=== PATIENT | female | born 1960 | race Caucasian/White ===

== ENCOUNTER → 2020-06-22 14:35 | Outpatient (CLI) | payer MEDICARE, SELFPAY ==
--- NOTE | 2020-06-22 14:43 | CT_ITS ---
PROCEDURE: CT ABDOMEN PELVIS WO CON CLINICAL INDICATION: mass/hernia? Pain/distention left upper abd all across hx months. Hx of ibs. Area of distention upper abd. COMPARISON: No exams were available for comparison TECHNIQUE: Axial images obtained with sagittal and coronal reformats. All CT scans at the facility use one or more dose reduction, viz: automated exposure control, ma/kV adjustment per patient size (including targeted exams where dose is matched to indication, i.e. head), or iterative reconstruction technique. FINDINGS: LOWER THORAX: On the most superior image there is a nodular opacity overlying the lower aspect of the right breast. This could be due to fibroglandular tissue or nodule. ABDOMEN & PELVIS: Prior cholecystectomy. The liver, spleen, adrenal glands, and kidneys have an unremarkable appearance. There is nodularity along the anterior aspect of the body of the pancreas. This is isodense and may only be related to pancreatic lobulation. Cannot exclude an isodense nodule. Either CT or MRI with pancreatic protocol without and with enhancement suggested for further evaluation. No intestinal obstruction or free air. No evidence of appendicitis. No evidence of diverticulitis. Prior hysterectomy. Along the base of the urinary bladder on image number 87 series 3 there is some increased soft tissue density. This may merely represent partial volume averaging artifact from the underlying pelvic floor however, a lesion within the central aspect of the bladder is a consideration. Cystoscopy may provide further evaluation. No abdominal wall hernia is identified. There is degenerative changes in the lumbar spine IMPRESSION: 1. No acute finding. 2. Possible nodule within the mid aspect of the pancreas. Follow-up with pancreatic protocol either MRI or CT may further delineate. 3. Increased soft tissue density along the base of the urinary bladder which could be due to partial volume averaging artifact or bladder lesion. 4. No evidence of abdominal wall hernia 5. Indeterminate opacity along the inferior aspect of the right breast. Mammography may provide further evaluation. Dictated by: Berto Du MD 06/24/2020 09:46 Berto Du MD in [facility] 06/24/2020 09:46
== END ==
PROVIDERS: PCP Family Medicine; Visit Provider Family Medicine
DX: R10.32 Left lower quadrant pain (principal)
CPT/HCPCS: 74176

== ENCOUNTER → 2020-07-05 10:36 | Outpatient (CLI) | payer MEDICARE, SELFPAY ==
--- NOTE | 2020-07-05 10:37 | MM_ITS ---
PROCEDURE: MM DIG SCREENING MAMM BI W/CAD Digital Breast Tomosynthesis Included CLINICAL INDICATION: abnormal finding on CT abd- see impression There is no personal or family history of breast cancer. COMPARISON: MG MM MAMMO DIGITAL SCREENING W CAD BILAT from 09/26/2016 TECHNIQUE: Standard CC and MLO images and 3D Tomosynthesis was obtained. R2 CAD reviewed. FINDINGS: Scattered fibroglandular densities are seen in both breast. There are couple of benign-appearing microcalcifications in each breast. There is a stable small benign-appearing nodular density axillary tail right breast likely an intramammary node. There are no CAD markings. There is no suspicious lesion and no suspicious microcalcifications. IMPRESSION: Fibrofatty parenchyma with no suspicious lesions seen BI-RAD Category: 2 Benign Finding(s) FOLLOW-UP: 1YR 1 Year Follow-up (A letter has been sent to the patient regarding results of the study.) Dictated by: Dr. Gamaliel Govea MD 07/11/2020 11:52 Dr. Gamaliel Govea MD in [facility] 07/11/2020 11:52
== END ==
PROVIDERS: PCP Family Medicine; Visit Provider Family Medicine
DX: Z12.31 Encounter for screening mammogram for malignant neoplasm of breast (principal)
CPT/HCPCS: 77063; 77067

== ENCOUNTER → 2020-07-13 07:49 | Outpatient (CLI) | payer MEDICARE, SELFPAY ==
--- NOTE | 2020-07-13 08:08 | MR_ITS ---
PROCEDURE: MR ABDOMEN WO/W CON CLINICAL INDICATION: abnormal CT abd Follow-up possible pancreatic mass COMPARISON: CT CT ABDOMEN PELVIS WO CON from 06/22/2020 TECHNIQUE: Routine multiplanar multi echo sequences are performed without and with gadolinium enhancement. FINDINGS: Liver, spleen kidneys, and adrenal glands have an unremarkable appearance. No obvious pancreatic mass. Nodular contour is present along the anterior aspect of the body of the pancreas measuring approximately 1 cm. This however has similar enhancement characteristics to the remaining pancreas and is felt to be related to lobularity of the pancreatic body. Would suggest a six-month follow-up for confirmation. The remaining pancreas has an unremarkable appearance. There is biliary ectasia. There has been a prior cholecystectomy which may account for this finding. Pancreatic duct has an unremarkable appearance. Common bile duct is prominent proximally at 10 mm and distally measures approximately 6 mm. IMPRESSION: 1. Nodular contour along the anterior aspect of the body of the pancreas felt to be related to pancreatic variant morphology as opposed to a mass/nodule. Suggest 6 month follow-up for confirmation of stability. 2. Prior cholecystectomy with biliary ectasia. No definite common duct stone or other abnormality apparent Dictated by: Berto Du MD 07/17/2020 11:44 Berto Du MD in [facility] 07/17/2020 11:44
[2020-07-13 08:14] LABS: Chloride 107 mmol/L (98-107)
[2020-07-13 08:15] LABS: Potassium 4.3 mmoL/L (3.5-5.1); Sodium 142 mmol/L (136-145)
[2020-07-13 08:18] LABS: Anion Gap 4.3 mEq/L (5-15); Blood Urea Nitrogen 7 mg/dl (7-17); Calcium 9.3 mg/dl (8.4-10.2); Carbon Dioxide 35 mmol/L (22.0-30.0); Estimated Glomerular Filt Rate 73 ml/min (>60); GFR (African American) 89 ML/MIN (>60); Glucose 93 mg/dl (74-100)
== END ==
PROVIDERS: PCP Family Medicine; Visit Provider Family Medicine
DX: Z01.818 Encounter for other preprocedural examination (principal); R10.9 Unspecified abdominal pain; R93.5 Abnormal findings on diagnostic imaging of other abdominal regions, including retroperitoneum
CPT/HCPCS: 36415; 74183; 76376; 80048; A9576

== ENCOUNTER 2020-08-18 20:47 | Emergency (ER) | payer MEDICARE, SELFPAY ==
[2020-08-18 21:33] VITALS: BP 181/64; PULSE 81; RESP 16; TEMP 37; O2SAT 96; BMI 22.6
--- NOTE | 2020-08-18 22:01 | XR_ITS ---
PROCEDURE: XR ANKLE LT MIN 3V CLINICAL INDICATION: twisted ankle Pain COMPARISON: No exams were available for comparison FINDINGS: No fracture or dislocation. No lytic or blastic change. There is normal mineralization. The joint spaces are well-preserved. No significant degenerative/arthritic changes. No erosive changes evident. Other findings:None. IMPRESSION: No acute findings. Dictated by: Berto Du MD 08/19/2020 08:48 Berto Du MD in [facility] 08/19/2020 08:48
--- NOTE | 2020-08-18 22:06 | HMH.EDLOEX ---
ED Disposition Clinical Impression: Left ankle injury Qualifiers: Encounter type: initial encounter Qualified Code(s): S99.912A - Unspecified injury of left ankle, initial encounter Achilles tendon injury Qualifiers: Encounter type: initial encounter Laterality: left Qualified Code(s): S86.002A - Unspecified injury of left Achilles tendon, initial encounter Disposition: Home, Self-Care Condition on Discharge: Good Instructions: DI for Ankle Sprain Additional Instructions: ice and no wt bearing and see pcp for follow up Referrals: Raimundo Johnson MD [Primary Care Provider] - Cara Jackson DPM [Staff Physician] - - Critical Care Critical Care Time: No Attestation: On 08/18/20, the high probability of a clinically significant, sudden or life threatening deterioration of the following system(s) required my full and direct attention, intervention and personal management. The time I documented below is in addition to time spent performing reported procedures but includes the following listed in this critical care notation. Medical Decision Making - Medical Records Medical records reviewed: Yes: I reviewed the patient's medical records. - Petros Inquiry Pt receiving controlled substance: No Vital Signs: 08/18/20 21:33 Temperature 98.6 F Temperature Source Oral Pulse Rate [Right Brachial] 81 Respiratory Rate 16 Blood Pressure [Right Arm] 181/64 H Blood Pressure Mean [Right Arm] 103 Blood Pressure Source [Right Arm] Automatic Cuff 02 Sat by Pulse Oximetry 96 Oxygen Delivery Method Room Air - Lab Data Lab results reviewed: Yes: I reviewed the patient's lab results. Orders (Tests/Meds): ORDERS Category Date Time Status Tibia/fibula XR left 2 views [XR tibia fibula LT 2V] Exams 08/18/20 22:14 Taken Stat XR ankle LT min 3V Stat Exams 08/18/20 22:01 Taken - Radiology Data #1 Image(s): Tib/Fib, Ankle Image Reviewed: Yes I reviewed the patient's radiology image Preliminary Findings: No Fracture Seen Medical Decision Narrative: possible achilles tendon injury and will ask pt to see dr jackson for follow up Lower Extremity Injury HPI - General Chief Complaint: Extremity Injury, Lower Stated Complaint: AO 08/18 FELL INJURED L FOOT AND LEG Time Seen by Provider: 08/18/20 21:45 Mode of Arrival: Wheelchair Source of Information: Patient, Medical Record Limitations: No Limitations Description of Symptoms (Recalled from ER Triage Doc. by RN): Pt reports to twisting her left ankle ~11am today. Pt is c/o pain to posterior ankle and used ice 1x aobut 2 hr ago. She reports minimal weight bearing d/t pain and is able to wiggle her toes. But pt reports she can not flex her ankle. Peripheral pulses 3+, no redness, heat or bruising noted. Pt had is wrapped in a compression bandage on arrival. - History of Present Illness HPI Narrative: acute injury to lt lower leg and ankle as she was playing and ext rotational injury - no hip pain -no knee pain MD complaint: leg injury, ankle injury Onset (ago): hour(s) Injury: Left: ankle Type of Injury: eversion Place: home Severity: moderate Context: fall Associated symptoms: able to partially bear weight Other symptoms: none - Related Data Previous Rx's Medication Instructions Recorded duloxetine 60 mg capsule,delayed 60 mg PO DAILY #90 cap 01/10/20 release alendronate 70 mg tablet 70 mg PO QWEEK #12 tab 01/20/20 ergocalciferol (vitamin D2) 1,250 1,250 mcg PO QWEEK #12 cap 01/20/20 mcg (50,000 unit) capsule omeprazole 40 mg capsule,delayed 40 mg PO DAILY #30 cap 04/20/20 release dicyclomine 20 mg tablet 20 mg PO DAILY #30 tab 07/05/20 hydrocodone 7.5 mg-acetaminophen 1 tab PO DAILY PRN #30 tab 08/06/20 325 mg tablet Allergies Allergy/AdvReac Type Severity Reaction Status Date / Time codeine Allergy Severe Rash Verified 07/05/20 13:03 Depo Medrol Allergy Severe Hives Uncoded 07/05/20 13:03 [facility] History - Hepatitis A Screen
--- NOTE | 2020-08-18 22:14 | XR_ITS ---
PROCEDURE: XR TIBIA FIBULA LT 2V CLINICAL INDICATION: injury with pain COMPARISON: No exams were available for comparison FINDINGS: No fracture or dislocation. No lytic or blastic change. There is normal mineralization. The joint spaces are well-preserved. No significant degenerative/arthritic changes. No erosive changes evident. Other findings:None. IMPRESSION: No acute findings. Dictated by: Berto Du MD 08/19/2020 08:46 Berto Du MD in [place] 08/19/2020 08:46
[2020-08-18 22:30] VITALS: BP 161/71; PULSE 79; O2SAT 100
[2020-08-18 23:14] VITALS: BP 162/79; PULSE 84; RESP 20; TEMP 37; O2SAT 100
== END 2020-08-18 23:15 | disposition home or self-care (01) ==
PROVIDERS: Emergency Provider Emergency Medicine; PCP Family Medicine
DX: S86.002A Unspecified injury of left Achilles tendon, initial encounter (principal); X50.1XXA Overexertion from prolonged static or awkward postures, initial encounter; Y92.9 Unspecified place or not applicable; F17.210 Nicotine dependence, cigarettes, uncomplicated
CPT/HCPCS: 29515; 73590; 73610; 99282

== ENCOUNTER → 2020-11-29 14:16 | Outpatient (CLI) | payer MEDICARE, SELFPAY ==
[2020-11-29 14:42] LABS: Amphetamine/Metha Screen,Urine Negative ng/ml (<1000)
[2020-11-29 14:43] LABS: Barbiturates Screen,Urine Negative ng/ml (<200); Benzodiazepines Screen,Urine Negative ng/ml (<200)
[2020-11-29 14:44] LABS: Cannabinoid Screen,Urine Positive ng/ml (<50)
[2020-11-29 14:45] LABS: Cocaine Screen,Urine Negative ng/ml (<300); Methadone Screen,Urine Negative ng/ml (<300)
[2020-11-29 14:46] LABS: Opiate Screen,Urine Negative ng/ml (<300)
[2020-11-29 14:47] LABS: Phencyclidine Screen,Urine Negative ng/ml (<25)
== END ==
PROVIDERS: Visit Provider Family Medicine
DX: G89.29 Other chronic pain (principal); M54.2 Cervicalgia
CPT/HCPCS: 80305

== ENCOUNTER 2020-12-17 08:18 | Emergency (ER) | payer MEDICARE, SELFPAY ==
[2020-12-17] VITALS (9 sets, daily range): BP systolic 128–147; BP diastolic 63–80; PULSE 56–86; RESP 16–18; TEMP 36.7–36.9; O2SAT 96–98; BMI 20.4
--- NOTE | 2020-12-17 08:25 | ECG_ITS ---
APPROVED REPORT Exam: Resting ECG HR:70 bpm ECG Measurements Heart Rate 70 AXES QRSd 70 QRS 85 QT 384 T 70 QTc 414 Conclusion Accelerated Junctional rhythm Late R wave progression Abnormal ECG Electronically signed by : Oleg Mayer, 12/18/2020 08:28:23
--- NOTE | 2020-12-17 08:46 | HMH.EDGENADL ---
ED Disposition Clinical Impression: Vasovagal syncope Disposition: Home, Self-Care Condition on Discharge: Good Instructions: DI for Syncope in Adults (Fainting), DI for Syncope in Children (Fainting) Additional Instructions: Please follow-up with your PCP for further management Referrals: Raimundo Johnson MD [Primary Care Provider] - - Critical Care Critical Care Time: No Attestation: On 12/17/20, the high probability of a clinically significant, sudden or life threatening deterioration of the following system(s) required my full and direct attention, intervention and personal management. The time I documented below is in addition to time spent performing reported procedures but includes the following listed in this critical care notation. Medical Decision Making - Medical Records Medical records reviewed: Yes: I reviewed the patient's medical records. - Petros Inquiry Pt receiving controlled substance: No Vital Signs: 12/17/20 08:19 12/17/20 09:00 12/17/20 09:30 Temperature 98.4 F Temperature Source Oral Pulse Rate 56 L 70 Pulse Rate [Right Radial] 86 Respiratory Rate 18 17 Blood Pressure 147/67 H 138/66 Blood Pressure [Right Arm] 146/80 H Blood Pressure Mean [Right Arm] 102 Blood Pressure Source [Right Arm] Automatic Cuff Blood Pressure Position [Right Arm] Sitting 02 Sat by Pulse Oximetry 98 97 98 Oxygen Delivery Method Room Air 12/17/20 10:00 12/17/20 10:30 12/17/20 11:00 Temperature Temperature Source Pulse Rate 70 73 84 Pulse Rate [Right Radial] Respiratory Rate 18 16 17 Blood Pressure 140/67 128/63 130/67 Blood Pressure [Right Arm] Blood Pressure Mean [Right Arm] Blood Pressure Source [Right Arm] Blood Pressure Position [Right Arm] 02 Sat by Pulse Oximetry 97 98 96 Oxygen Delivery Method 12/17/20 11:30 12/17/20 12:00 Temperature Temperature Source Pulse Rate 71 71 Pulse Rate [Right Radial] Respiratory Rate 18 17 Blood Pressure 139/71 137/67 Blood Pressure [Right Arm] Blood Pressure Mean [Right Arm] Blood Pressure Source [Right Arm] Blood Pressure Position [Right Arm] 02 Sat by Pulse Oximetry 97 97 Oxygen Delivery Method - Lab Data Lab results reviewed: Yes: I reviewed the patient's lab results. Lab Results 12/17/20 08:35: WBC 13.7 H, RBC 5.10, Hgb 15.5, Hct 46.3, MCV 90.8, MCH 30.5, MCHC 33.6, RDW 13.2, Plt Count 383, MPV 8.3, Neut % (Auto) 75.6, Lymph % (Auto) 19.3, [place] % (Auto) 3.6, Eos % (Auto) 0.9, Baso % (Auto) 0.5, Neut # (Auto) 10.4 H, Lymph # (Auto) 2.7, [place] # (Auto) 0.5, Eos # (Auto) 0.1, Baso # (Auto) 0.1 12/17/20 08:35: Sodium 143, Potassium 3.9, Chloride 105, Carbon Dioxide 31 H, Anion Gap 10.9, BUN 10, Creatinine 0.70, Estimated Creat Clear 66, Estimated GFR 85, Est GFR ( Amer) 103, Glucose 101 H, Calcium 9.5, Total Bilirubin 0.4, AST 30, ALT 18, Alkaline Phosphatase 111, Troponin I < 0.01, Total Protein 8.7 H, Albumin 4.8, Globulin 3.9 H, Albumin/Globulin Ratio 1.2 12/17/20 10:15: Urine Color Yellow, Urine Appearance Clear, Urine pH 5.5, Ur Specific [place] 1.010, Urine Protein Negative, Urine Glucose (UA) Negative, Urine Ketones Negative, Urine Blood Trace-l, Urine Nitrate Negative, Urine Bilirubin Negative, Urine Urobilinogen 0.2, Ur Leukocyte Esterase Negative, Urine RBC None, Urine WBC None, Ur Squamous Epith Cells Occasional, Urine Bacteria None 12/17/20 11:25: Troponin I < 0.01 Result diagrams: 12/17/20 08:35 12/17/20 08:35 Orders (Tests/Meds): ORDERS Category Date Time Status Troponin I Q3H Lab 12/17/20 14:45 Ordered - ECG Data Tracing #1 I reviewed this ECG and interpreted as documented below: ECG initial impression date: 12/17/20 ECG initial impression time: 08:30 Normal Sinus Rhythm: No Arrhythmias present: accelerated junctional rhythm - MAXIMUS Score for Non-Stemi Age of Patient: 60-69 years old Heart Rate: 70-89 bpm Systolic Blood Pressure: 200 mmhg or higher S
--- NOTE | 2020-12-17 08:47 | XR_ITS ---
PROCEDURE: XR CHEST 2V CLINICAL HISTORY: syncope COMPARISON: No exams were available for comparison FINDINGS: The cardiomediastinal silhouette and pulmonary vascularity are within normal limits. There is hyperinflation with eventration of the hemidiaphragms consistent with small airway disease. There are multiple old right-sided rib fractures. Vague opacity is noted in the right lower lung zone overlying the 7th rib and could represent a nipple shadow. There are degenerative changes in the thoracic spine. There are bone plates overlying the cervical spine. IMPRESSION: Hyperinflation suggesting small airway disease/COPD/asthma/bronchitis Dictated by: Berto Du MD 12/17/2020 09:42 Berto Du MD in [place] 12/17/2020 09:42
[2020-12-17 08:50] LABS: Chloride 105 mmol/L (98-107); Potassium 3.9 mmoL/L (3.5-5.1); Sodium 143 mmol/L (136-145)
[2020-12-17 08:52] LABS: Blood Urea Nitrogen 10 mg/dl (7-17); Creatinine Clearance Estimated 66 mL/min (50-200); Estimated Glomerular Filt Rate 85 ml/min (>60); GFR (African American) 103 ML/MIN (>60)
[2020-12-17 08:53] LABS: Alanine Aminotransferase 18 U/L (12-78); Albumin Level 4.8 g/dl (3.5-5.0); Albumin/Globulin Ratio 1.2 (1.1-1.8); Alkaline Phosphatase 111 U/L (38-126); Anion Gap 10.9 mEq/L (5-15); Aspartate Amino Transferase 30 U/L (14-36); Bilirubin,Total 0.4 mg/dl (0.2-1.3); Calcium 9.5 mg/dl (8.4-10.2); Carbon Dioxide 31 mmol/L (22.0-30.0); Globulin 3.9 g/dL (1.3-3.2); Glucose 101 mg/dl (74-100); Total Protein,Serum 8.7 g/dl (6.3-8.2)
[2020-12-17 09:00] LABS: Basophils # 0.1 K/mm3 (0-0.2); Basophils % 0.5 % (0.1-2.0); Eosinophils # 0.1 K/mm3 (0.0-0.4); Eosinophils % 0.9 % (0.1-12.0); Hematocrit 46.3 % (37.0-47.0); Hemoglobin 15.5 g/dL (12.2-16.2); Lymphocytes # 2.7 K/mm3 (0.7-4.5); Lymphocytes % 19.3 % (10-50); Mean Corpuscular HGB Conc 33.6 g/dL (31.8-35.4); Mean Corpuscular Hemoglobin 30.5 pg (27.0-31.2); Mean Corpuscular Volume 90.8 fl (81-99); Mean Platelet Volume 8.3 fl (7.4-10.4); Monocytes # 0.5 K/mm3 (0.1-1.0); Monocytes % 3.6 % (1.7-9.3); Neutrophils # 10.4 K/mm3 (1.8-7.8); Neutrophils % 75.6 % (37.0-80.0); Platelet Count 383 K/mm3 (142-424); Red Cell Distribution Width 13.2 % (11.5-17.5); White Blood Count 13.7 K/mm3 (4.8-10.8)
[2020-12-17 09:07] LABS: Troponin I < 0.01 ng/ml (0.00-0.034)
--- NOTE | 2020-12-17 10:21 | PC.NURSE ---
Urine sent to lab
[2020-12-17 10:22] LABS: Microscopic, Urine URINE MICROSCOPIC (MICROSCOPIC)
[2020-12-17 10:24] LABS: Appearance,Urine CLEAR (Clear); Bilirubin,Urine Negative (Negative); Blood, Urine TRACE-L (Negative); Color,Urine YELLOW (Yellow); Glucose,Urine (UA) Negative (Negative); Ketones,Urine Negative (Negative); Leukocyte Esterase,Urine Negative (Negative); Nitrate,Urine Negative (Negative); PH,Urine 5.5 (5.0-8.5); Protein,Urine Negative (Negative); Urobilinogen,Urine 0.2 EU/dl (0.2)
[2020-12-17 10:42] LABS: Squamous Epithelial Cell,Urine Occasional #/hpf (0-5)
[2020-12-17 12:15] LABS: Troponin I < 0.01 ng/ml (0.00-0.034)
== END 2020-12-17 13:04 | disposition home or self-care (01) ==
PROVIDERS: Emergency Provider Emergency Medicine; PCP Family Medicine
DX: R55 Syncope and collapse (principal); F41.8 Other specified anxiety disorders; K21.9 Gastro-esophageal reflux disease without esophagitis; F17.210 Nicotine dependence, cigarettes, uncomplicated
CPT/HCPCS: 71046; 80053; 81001; 84484; 85025; 93005; 99283

== ENCOUNTER → 2021-02-12 07:41 | Outpatient (CLI) | payer MEDICARE, SELFPAY ==
--- NOTE | 2021-02-12 07:56 | MR_ITS ---
PROCEDURE INFORMATION: Exam: MR Abdomen Without and With Contrast Exam date and time: 02/12/2021 7:56 AM Age: 61 years old Clinical indication: Abnormal findings; Abnormal radiologic finding of the abdomen; Radiologic exam and body structure: MR; Additional info: 6 mth f/u. 6 month f/u mri 07-13-20. 10ml prohance given. Lot: [id number] exp: Jul 2022 bun: 6 cre: 0.6 gfr: 102 TECHNIQUE: Imaging protocol: MR of the abdomen without and with intravenous contrast. Contrast material: PROHANCE; Contrast volume: 10 ml; Contrast route: IV; COMPARISON: MR ABDOMEN WO/W CON 07/13/2020 8:52 AM FINDINGS: Liver: No hepatomegaly. No mass. Tiny calcified granulomas in the liver are better seen on prior CT. Gallbladder and bile ducts: Post cholecystectomy. Common duct remains within upper limits normal approximate 8 mm diameter. No intraluminal filling defects. There is a slightly truncated appearance of the common duct at the ampulla, see coronal series 5, images 16 -17, which could be due to slight thickening at the ampulla, less likely an ampullary neoplasm as the duct is not significantly dilated, there is no altered signal or abnormal enhancement in this region, no discrete nodule visualized. Pancreas: There are slight fatty infiltrative changes in the distal body and tail of the pancreas as seen on prior exams. No ductal dilatation. Main pancreatic duct measures approximately 3 mm in the head of pancreas coronal series 5, image 16, or possibly up to 4 mm on MRCP series 27, though the MRCP series is blurred. Slightly lobulated contours of the pancreas again noted. Enhancement appears normal. No discrete mass or cyst. Spleen: The spleen is normal. Adrenal glands: The adrenal glands are normal. Kidneys and ureters: The kidneys are normal. Stomach and bowel: There is no evidence of intestinal perforation or obstruction. Prominent gaseous distention of small bowel loops, but no dilatation or definite mucosal thickening seen. The stomach is normal. Intraperitoneal space: There is no significant free intraperitoneal fluid. Arteries: There is no aortic aneurysm. Veins: Patent main portal vein with expected signal void/flow void. Lymph nodes: No significantly enlarged lymph nodes by short axis criteria. Bones/joints: Spinal degenerative changes, thoracolumbar dextroscoliosis, multilevel disc disease and spondylosis. Soft tissues: There are no soft tissue masses or fluid collections. IMPRESSION: 1. No acute findings. 2. No pancreatic mass, cyst or ductal dilatation. No further follow-up indicated. 3. Biliary tree is within normal limits post cholecystectomy. No intraluminal stones are seen. Slightly truncated appearance of the common duct at the ampulla which appears to be due to slight ampullary thickening rather than a mass; no discrete nodule or abnormal enhancement seen, and there is no ductal dilatation. 4. Additional nonemergency and chronic findings as above.
[2021-02-12 08:22] LABS: Anion Gap 6.9 mEq/L (5-15); Blood Urea Nitrogen 6 mg/dl (7-17); Calcium 8.4 mg/dl (8.4-10.2); Carbon Dioxide 35 mmol/L (22.0-30.0); Chloride 107 mmol/L (98-107); Estimated Glomerular Filt Rate 102 ml/min (>60); GFR (African American) 123 ML/MIN (>60); Glucose 89 mg/dl (74-100); Potassium 3.9 mmoL/L (3.5-5.1); Sodium 145 mmol/L (136-145)
== END ==
PROVIDERS: PCP Family Medicine; Visit Provider Family Medicine
DX: Z01.818 Encounter for other preprocedural examination (principal); K86.9 Disease of pancreas, unspecified
CPT/HCPCS: 36415; 74183; 76376; 80048; A9576